=== PATIENT | male | born 1965 | race African-American/Black ===

== ENCOUNTER 2023-06-22 10:36 | Outpatient (CLI) | payer BC | END 2023-06-22 10:37 | disposition home or self-care (01) | LOC: CSHRAD 10:36 | PROVIDERS: ATTEND Internal Medicine Rheumatology | DX: M25.551 Pain in right hip (principal); M25.552 Pain in left hip; M16.0 Bilateral primary osteoarthritis of hip; M25.752 Osteophyte, left hip; M25.751 Osteophyte, right hip | CPT/HCPCS: 73521 ==